=== PATIENT | female | born 1965 | race African-American/Black ===

== ENCOUNTER 2022-02-15 13:58 | Emergency (ER) | payer OTHER ==
[2022-02-15 14:24] VITALS: BP 137/81; PULSE 86; TEMP 98.9; BMI 30.9
[2022-02-15] MEDS ORDERED: ACETAMINOPHEN 500 MG TABLET (FP) ONE (15:27)
[2022-02-15] MEDS ORDERED: ACETAMINOPHEN 500 MG TABLET (FP) PO ONE (15:27)
== END 2022-02-15 16:49 | disposition home or self-care (01) ==
LOC: JERFT 13:58
DX: S60.419A Abrasion of unspecified finger, initial encounter (principal); M79.631 Pain in right forearm; Y04.8XXA Assault by other bodily force, initial encounter
CPT/HCPCS: 73090-TC-RT-FY; 73110-TC-RT-FY; 73130-TC-RT-FY; 99284-25